=== PATIENT | female | born 1990 | race Caucasian/White ===

== ENCOUNTER → 2020-09-18 10:01 | Outpatient (CLI) | payer MEDICAID, SELFPAY ==
[2020-09-18 11:50] LABS: Hematocrit 34.2 % (37-47); Hemoglobin 11.3 g/dL (12.0-15.0); Mean Corpuscular Hgb 30.6 pg (27.0-32.0); Mean Corpuscular Volume 92.7 fL (81-99); Mean Platelet Vol. 10.5 fl (6.2-12.0); Platelet Count 229 K/mm3 (150-450); RBC Distribution Width CV 12.3 % (11.6-14.6); RBC Distribution Width SD 41.8 fl (35.1-43.9); Red Blood Count 3.69 M/mm3 (4.2-5.4); White Blood Count 7.6 K/mm3 (4.4-11.0)
[2020-09-18 11:58] LABS: Glucose Challenge Gest 1H 50g 69 mg/dL (70-140)
== END ==
PROVIDERS: Visit Provider Obstetrics & Gynecology
DX: Z34.83 Encounter for supervision of other normal pregnancy, third trimester (principal)
CPT/HCPCS: 36415; 82950; 85027

== ENCOUNTER → 2020-11-10 | Outpatient (CLI) | payer MEDICAID, SELFPAY | END | disposition home or self-care (01) | LOC: LABSPEC 11-11 09:59 | PROVIDERS: Visit Provider Obstetrics & Gynecology | DX: Z36.85 Encounter for antenatal screening for Streptococcus B (principal) | CPT/HCPCS: 87081 ==

== ENCOUNTER 2020-12-09 00:40 | Inpatient (IN) | payer MEDICAID, SELFPAY ==
[2020-12-09] VITALS (89 sets, daily range): BP systolic 99–153; BP diastolic 54–77; PULSE 64–93; RESP 16–18; TEMP 36.2–37.5; O2SAT 90–100; BMI 28.9
[2020-12-09] MEDS: Lactated Ringers 1,000 ML 50 ML IV (01:03)
[2020-12-09 01:12] LABS: Absolute Lymphocyte Count 1.09 X10^3/uL (0.83-4.51); Absolute Neutrophil Count 9.7 X10^3/uL (2.0-7.7); Basophil# 0.03 X10^3/uL; Basophil% 0.3 % (0-1); Eosinophil# 0.15 X10^3/uL; Eosinophils% 1.3 % (0-5); Hematocrit 36.1 % (37-47); Hemoglobin 11.9 g/dL (12.0-15.0); Lymphocyte # 1.09 X10^3/ul (0.83-4.51); Lymphocyte % 9.3 % (19-41); Mean Corpuscular Hgb 29.5 pg (27.0-32.0); Mean Corpuscular Volume 89.6 fL (81-99); Mean Platelet Vol. 10.6 fl (6.2-12.0); Monocyte# 0.74 X10^3/uL; Monocyte% 6.3 % (0-10); NRBC Flagged by Analyzer 0 % (0-5); Neutrophil # 9.67 X10^3/uL (2.7-7.7); Platelet Count 216 K/mm3 (150-450); RBC Distribution Width CV 12.9 % (11.6-14.6); RBC Distribution Width SD 42.3 fl (35.1-43.9); Red Blood Count 4.03 M/mm3 (4.2-5.4); White Blood Count 11.8 K/mm3 (4.4-11.0)
[2020-12-09] MEDS: Lactated Ringers 500 ML 999 ML IV ×2 (01:15→06:08)
[2020-12-09] MEDS: fentaNYL-bupivacaine (epidural) 100 ML BAG EPIDURAL ×2 (03:17→08:34)
--- NOTE | 2020-12-09 05:40 | PCM.HPOB.BLA ---
History and Physical Chief complaint: Contractions History of present illness: 30-year-old G2, P1 at 40 weeks and 2 days with ELIS: 12/07/2020 by LMP arrives with contractions. Denies headache, visual changes, nausea vomiting, chest pain, shortness of breath, right upper quadrant pain. Patient states good movement Obstetric history: G1: 34-week primary section with twins with IUGR G2: Current Past medical history: None Past surgical history primary section Medications: vitamin Allergies: No known drug allergies Social history: Denies history of smoking, alcohol use, drug use Family history: Denies history of DVT or PE Review of systems: Besides above pertinent positives a full review of systems was performed found to be negative Physical exams: Vital Signs Temp Pulse BP Pulse Ox 12/09/20 05:03 97.4 F L 74 106/71 12/09/20 04:23 76 97 12/09/20 04:18 75 98 12/09/20 04:17 66 107/68 12/09/20 04:13 65 98 12/09/20 04:08 68 97 12/09/20 04:03 73 97 12/09/20 03:58 84 97 12/09/20 03:54 78 108/68 12/09/20 03:53 97 12/09/20 03:49 66 110/60 12/09/20 03:48 98 12/09/20 03:44 69 99/56 L 12/09/20 03:43 70 97 12/09/20 03:39 68 102/56 L 12/09/20 03:38 71 99 12/09/20 03:34 69 100/57 L 12/09/20 03:33 99 12/09/20 03:29 74 102/56 L 12/09/20 03:28 99 12/09/20 03:24 67 102/55 L 12/09/20 03:23 98 12/09/20 03:21 70 109/59 L 12/09/20 03:19 77 114/61 12/09/20 03:18 80 98 12/09/20 03:13 76 98 12/09/20 03:09 80 120/62 12/09/20 03:08 99 12/09/20 03:04 88 118/61 12/09/20 03:03 84 99 12/09/20 02:59 90 120/63 12/09/20 02:58 72 99 12/09/20 02:54 82 117/60 12/09/20 02:53 84 99 12/09/20 02:51 77 123/61 H 12/09/20 02:48 85 99 12/09/20 02:44 98.3 F 85 114/56 L 12/09/20 02:43 99 12/09/20 02:41 81 121/57 H 12/09/20 02:38 83 99 12/09/20 02:35 78 106/54 L 12/09/20 02:33 93 97 12/09/20 02:31 64 119/56 L 12/09/20 02:28 69 98 12/09/20 02:26 76 116/56 L 94 12/09/20 02:23 83 98 12/09/20 02:20 76 114/77 12/09/20 02:18 72 98 12/09/20 02:17 80 90 12/09/20 02:15 73 113/57 L 12/09/20 02:12 71 97 12/09/20 02:10 84 117/65 91 12/09/20 02:06 79 96 12/09/20 02:05 71 123/58 H 12/09/20 02:04 72 94 12/09/20 02:01 71 98 12/09/20 01:59 78 121/73 H 91 12/09/20 01:56 83 97 12/09/20 01:38 74 97 12/09/20 00:56 82 97 12/09/20 00:27 73 112/75 General: Normal-appearing no acute distress HEENT: Normocephalic atraumatic no cervical lymphadenopathy Cardiac/respiratory: No use of accessory muscles, nonlabored breathing Abdomen: Soft, nontender, gravid Pelvic exam: Cervical exam 8/80/0, AROM for blood-tinged fluid Extremities: No peripheral edema normal peripheral pulses Psych: Normal affect normal demeanor nonpressured speech Mom's Microbiology 12/09/20 01:03 Mucosa - Nose SARS-CoV-2 Antigen (Rapid) - Final Mom's Labs & Results 12/09/20 12/09/20 12/09/20 01:03 01:03 04:20 WBC 11.8 H RBC 4.03 L Hgb 11.9 L Hct 36.1 L MCV 89.6 MCH 29.5 MCHC 33.0 RDW Std Deviation 42.3 RDW Coeff of Camilla 12.9 Plt Count 216 MPV 10.6 Immature Gran % (Auto) 0.800 Neut % (Auto) 82.0 H Lymph % (Auto) 9.3 L [place] % (Auto) 6.3 Eos % (Auto) 1.3 Baso % (Auto) 0.3 Absolute Neuts (auto) 9.7 H Absolute Lymphs (auto) 1.09 Nucleated RBC % 0 Chlam trachomat DNA PCR Pending N.gonorrhoeae DNA (PCR) Pending Blood Type A POSITIVE Antibody Screen NEGATIVE Labs Blood Type: A RH: POSITIVE HIV/AIDS Unknown Other Lab Procedures/Results/ Ambrosio Babb states he will get labs for RN. Comments: Assessment and plan: 30-year-old at 40 weeks and 2 days in labor. Desires TOLAC, educated on risk benefits alternatives TOLAC including but not limited to uterine rupture and . Patient states understanding wish to proceed. AROM for clear fluid. -Admit labor and delivery -CEFM -GBS negative -Routine orders -Anesthesia to see
[2020-12-09 06:24] LABS: Chlamydia Trachomatis by PCR Negative (Negative); Neisserai gonorrhoeae by PCR Negative (Negative); Probe Check PASS; Sample Adequacy Control PASS; Specimen Processing Control PASS
[2020-12-09] MEDS: Lactated Ringers 1,000 ML 200 ML IV (06:55)
[2020-12-09 09:02] LABS: Hepatitis B Surface Antigen Non-Reactive (Nonreactive)
--- NOTE | 2020-12-09 10:37 | PN.OBGYN_ITS ---
Subjective: Patient comfortable with epidural pushing - Physical Exam Vitals/I&O's: Vital Signs Temp Pulse BP Pulse Ox 99.5 F H 71 109/55 L 100 12/09/20 10:23 12/09/20 10:24 12/09/20 10:24 12/09/20 09:06 Weight: 163 lb 3.2 oz Body Mass Index (BMI) 28.9 Intake and Output for Last 24 Hours 12/07/20 12/08/20 12/09/20 23:59 23:59 23:59 Intake Total 2061.66 / 2061.66 Output Total 450 / 450 Balance 1611.66 / 1611.66 General: Alert, Oriented x3, Cooperative, No apparent distress HEENT: Atraumatic Oral: Moist Mucosa Neck: Supple Extremities: No clubbing, No cyanosis Neurological: Neuro grossly intact Psych/Mental Status: Normal Affect, Appropriate, Alert and oriented to time, place, person, mood and affect Microbiology Past 72 Hours 12/09/20 01:03 Mucosa - Nose SARS-CoV-2 Antigen (Rapid) - Final Laboratory Results 12/09/20 01:03: WBC 11.8 H, RBC 4.03 L, Hgb 11.9 L, Hct 36.1 L, MCV 89.6, MCH 29.5, MCHC 33.0, RDW Std Deviation 42.3, RDW Coeff of Camilla 12.9, Plt Count 216, MPV 10.6, Immature Gran % (Auto) 0.800, Neut % (Auto) 82.0 H, Lymph % (Auto) 9.3 L, [place] % (Auto) 6.3, Eos % (Auto) 1.3, Baso % (Auto) 0.3, Absolute Neuts (auto) 9.7 H, Absolute Lymphs (auto) 1.09, Nucleated RBC % 0 12/09/20 01:03: Blood Type A POSITIVE, Antibody Screen NEGATIVE 12/09/20 04:20: Chlam trachomat DNA PCR Negative, N.gonorrhoeae DNA (PCR) Negative 12/09/20 07:44: Hep Bs Antigen Non-Reactive Current Medications Acetaminophen (Acetaminophen 500 Mg Tablet) 500 - 1,000 mg PO Q6H PRN PRN PRN Reason: Pain Score 1-3 Al Hydroxide/Mg Hydroxide (Mag Hydrox/Al Hydrox/Simeth 30 Ml Udc) 15 - 30 ml PO Q4H PRN PRN PRN Reason: INDIGESTION Citric Acid/Sodium Citrate (Sodium Citrate/Citric Acid 30 Ml Udc) 30 ml PO X1 PRN PRN Reason: Section Ephedrine Sulfate (Ephedrine Sulfate 50 Mg/Ml Ampul) 10 mg IV Q10M PRN PRN Reason: hypotension Ephedrine Sulfate (Ephedrine Sulfate 50 Mg/Ml Ampul) 10 mg IM Q30M PRN PRN Reason: hypotension Fentanyl Citrate (Fentanyl 100 Mcg/2 Ml Ampul) 25 - 50 mcg IV Q2H PRN PRN PRN Reason: Pain Score 4-10 Fentanyl/Bupivacaine/Sodium Chlor (Fentanyl-Bupivacaine (Epidural) 100 Ml Bag) 0 ml EPIDURAL UD NIECY; Protocol Last Admin: 12/09/20 08:34 Dose: 100 ml Documented by: Lactated Ringer's () 500 mls @ 999 mls/hr IV .Q31M PRN PRN Reason: Epidural Last Infusion: 12/09/20 01:46 Dose: Infused Documented by: Lactated Ringer's () 500 mls @ 999 mls/hr IV .Q31M PRN PRN Reason: Corrective Measures Last Infusion: 12/09/20 06:39 Dose: Infused Documented by: Lactated Ringer's () 1,000 mls @ 50 mls/hr IV .Q20H NIECY Last Admin: 12/09/20 06:55 Dose: 200 mls/hr Documented by: Nalbuphine HCl (Nalbuphine 10 Mg/Ml Ampul) 5 mg IV Q3H PRN PRN PRN Reason: ITCHING Naloxone HCl (Naloxone 0.4 Mg/Ml Syringe) 0.02 mg IV Q1M PRN PRN Reason: RR <10 and pt unresponsive Ondansetron HCl (Ondansetron 4 Mg/2 Ml Vial) 4 mg IV Q4H PRN PRN PRN Reason: NAUSEA Prochlorperazine Edisylate (Prochlorperazine 10 Mg/2 Ml Vial) 10 mg IV Q6H PRN PRN PRN Reason: NAUSEA Sodium Chloride (0.9% Saline Lock 10 Ml Syringe) 10 - 40 ml IV X1 PRN PRN Reason: SALINE FLUSH Medical Necessity - Tobacco Use Smoking Status: Never smoker Assessment/Plan Patient seen and examined. Cervical exam 10/100/+1 to +2. We will continue pushing for 30 to 45 minutes and reevaluate. Had early discussions about forceps assisted vaginal delivery or vacuum-assisted delivery if needed. Patient state understanding
[2020-12-09] MEDS: Oxytocin 30 units/NS 500 ml 30 UNITS/500 ML IV.SOLN 334 UNITS IV (11:38)
--- NOTE | 2020-12-09 12:17 | PCM.OPRPT ---
Vaginal Delivery Date of Procedure: 12/09/20 Pre-Operative Diagnosis: Term, maternal exhaustion Post-Operative Diagnosis: Term, maternal exhaustion Surgery/ Procedure Performed: Vacuum Assisted Vaginal Delivery Type of Anesthesia: Epidural Description of Procedure: Procedure: Vacuum-assisted vaginal delivery Surgeon: Zana Babb MD Anesthesia: Epidural EBL 800 cc Complications: None Findings: Male in vertex position +2-3 station HENRY Apgars 8/9. Right sulcus tear, second-degree midline perineal laceration noted. Consent: Patient arrived with contractions for TOLAC found to be 10 cm dilated. Pushed for greater than 4 hours, maternal exhaustion. Found to be +2-3 station HENRY. Pelvis felt to be appropriate for vaginal delivery. Epidural anesthesia was adequate for pain relief. Discussed patient's options including vacuum-assisted vaginal delivery including the risk associated with each procedure. The patient desired to proceed with vacuum-assisted vaginal delivery, and understood there was a small risk of cephalhematoma and shoulder dystocia. Process of the vacuum was explained and the vacuum was shown to the patient. Procedure: Pelaez catheter present during delivery. Vaginal examination reconfirmed HENRY position +2-3 station. Kiwi vacuum was applied over the sagittal suture about 3 cm in front of the posterior fontanelle. Vacuum pressure was applied. The edge of the cup was carefully examined and no maternal tissue was entrapped under the cup. Gentle horizontal traction along the pelvic access in coordination with uterine contractions maternal pushing was performed. Progressive distention was noted with 1 pull. The handle of vacuum was gradually elevated and the perineum began to bulge. The cup did not pop off. The cup was removed after the head was delivered. Head and shoulders were delivered with ease. Cord was cut and clamped. Baby handed off to nursing. Placenta was delivered via cord traction and fundal massage. IV Pitocin was initiated in order to facilitate uterine contractions. The cervix and vaginal wall were thoroughly examined. Right sulcus tear second-degree midline perineal laceration was noted and repaired in typical fashion. Good hemostasis was noted. All counts correct x2.
--- NOTE | 2020-12-09 12:22 | DCINST_ITS ---
Discharge Diet: No Restrictions Discharge Activity: Return to Normal Activity, May Drive, May Shower May resume sexual activity in: 6-8 weeks Weight Bearing Status: Weight bearing as tolerated Call your doctor if your incision/area has: Continuous Slow Oozing, Foul Smelling Discharge Call your doctor if you observe: Fever of 101 or Higher, Shortness of breath, Chest pain Additional Instructions: If you experience any of the following, contact your healthcare provider. * Bleeding that soaks a pad every hour for 2 hours * Fever 100.4 or higher * Unrelieved incision or abdominal pain * Swelling, redness, discharge or bleeding from your incision or episiotomy site * Your incision begins to separate * Problems urinating (including inability to urinate or burning while urinating). * Visual changes * Severe headache * Flu-like symptoms * Pain or redness in one of both of your breasts * Pain, warmth, tenderness or swelling in your legs, especially the calf area * Frequent nausea and vomiting * Symptoms of depression or anxiety If you experience any of the following, call 911 or go to the nearest Emergency Room. * Chest pain * Problems breathing * Seizure activity * Partial or complete paralysis of a body part, slurred speech, weakness or drooping of the face, or a sudden inability to walk or hold your balance Allergies/Adverse Reactions: Allergies No Known Allergies Allergy (Verified 12/09/20 00:49) Please Follow Up With: Zana Babb MD When: 3 week telehealth, 6 week visit Test Results: Test results from this visit will be discussed in further detail at your follow- up appointment, if applicable.
--- NOTE | 2020-12-09 12:22 | PCM.DCVAG ---
Discharge Diet: No Restrictions Discharge Activity: Return to Normal Activity, May Drive, May Shower May resume sexual activity in: 6-8 weeks Weight Bearing Status: Weight bearing as tolerated Call your doctor if your incision/area has: Continuous Slow Oozing, Foul Smelling Discharge Call your doctor if you observe: Fever of 101 or Higher, Shortness of breath, Chest pain Additional Instructions: If you experience any of the following, contact your healthcare provider. Bleeding that soaks a pad every hour for 2 hours Fever 100.4 or higher Unrelieved incision or abdominal pain Swelling, redness, discharge or bleeding from your incision or episiotomy site Your incision begins to separate Problems urinating (including inability to urinate or burning while urinating). Visual changes Severe headache Flu-like symptoms Pain or redness in one of both of your breasts Pain, warmth, tenderness or swelling in your legs, especially the calf area Frequent nausea and vomiting Symptoms of depression or anxiety If you experience any of the following, call 911 or go to the nearest Emergency Room. Chest pain Problems breathing Seizure activity Partial or complete paralysis of a body part, slurred speech, weakness or drooping of the face, or a sudden inability to walk or hold your balance Allergies/Adverse Reactions: Allergies No Known Allergies Allergy (Verified 12/09/20 00:49) Please Follow Up With: Zana Babb MD When: 3 week telehealth, 6 week visit Test Results: Test results from this visit will be discussed in further detail at your follow-up appointment, if applicable.
[2020-12-09] MEDS: Carboprost Tromethamine 250 MCG/ML Ampul IM (14:21)
[2020-12-09] MEDS: Ibuprofen 600 MG Tablet PO (15:02)
[2020-12-09 18:20] LABS: Absolute Lymphocyte Count 0.79 X10^3/uL (0.83-4.51); Absolute Neutrophil Count 18.3 X10^3/uL (2.0-7.7); Basophil# 0.04 X10^3/uL; Basophil% 0.2 % (0-1); Eosinophil# 0.01 X10^3/uL; Hematocrit 35.1 % (37-47); Hemoglobin 11.4 g/dL (12.0-15.0); Lymphocyte # 0.79 X10^3/ul (0.83-4.51); Lymphocyte % 3.9 % (19-41); Mean Corp Hgb Conc 32.5 g/dL (32-36); Mean Corpuscular Hgb 29.5 pg (27.0-32.0); Mean Corpuscular Volume 90.7 fL (81-99); Mean Platelet Vol. 10.6 fl (6.2-12.0); Monocyte# 0.99 X10^3/uL; Monocyte% 4.9 % (0-10); NRBC Flagged by Analyzer 0 % (0-5); Neutrophil # 18.33 X10^3/uL (2.7-7.7); Neutrophil % 90.5 % (47-70); Platelet Count 197 K/mm3 (150-450); RBC Distribution Width CV 13.2 % (11.6-14.6); RBC Distribution Width SD 43.8 fl (35.1-43.9); Red Blood Count 3.87 M/mm3 (4.2-5.4); White Blood Count 20.3 K/mm3 (4.4-11.0)
[2020-12-10] VITALS (12 sets, daily range): BP systolic 99–109; BP diastolic 55–59; PULSE 66–81; RESP 16–18; TEMP 36.5–37; O2SAT 87–98
[2020-12-10] MEDS: Ibuprofen 600 MG Tablet PO ×3 (00:12→20:19)
--- NOTE | 2020-12-10 07:15 | PN.OBGYN_ITS ---
Subjective: No overnight complaints. Pain well controlled. - Physical Exam Vitals/I&O's: Vital Signs Temp Pulse Resp BP Pulse Ox 97.8 F 68 16 109/55 L 100 12/10/20 03:09 12/10/20 03:09 12/10/20 03:09 12/10/20 03:09 12/09/20 09:06 Oxygen Delivery Method Room Air Weight: 163 lb 3.2 oz Body Mass Index (BMI) 28.9 Intake and Output for Last 24 Hours 12/08/20 12/09/20 12/10/20 23:59 23:59 23:59 Intake Total 3504.99 / 3504.99 Output Total 2049 / 2049 Balance 1454.99 / 1454.99 General: Alert, Oriented x3, Cooperative, No apparent distress HEENT: Atraumatic Oral: Moist Mucosa Neck: Supple Extremities: No clubbing, No cyanosis Neurological: Neuro grossly intact Psych/Mental Status: Normal Affect, Appropriate, Alert and oriented to time, place, person, mood and affect Microbiology Past 72 Hours 12/09/20 01:03 Mucosa - Nose SARS-CoV-2 Antigen (Rapid) - Final Laboratory Results 12/09/20 07:44: Hep Bs Antigen Non-Reactive 12/09/20 18:15: WBC 20.3 H, RBC 3.87 L, Hgb 11.4 L, Hct 35.1 L, MCV 90.7, MCH 29.5, MCHC 32.5, RDW Std Deviation 43.8, RDW Coeff of Camilla 13.2, Plt Count 197, MPV 10.6, Immature Gran % (Auto) 0.500, Neut % (Auto) 90.5 H, Lymph % (Auto) 3.9 L, [place] % (Auto) 4.9, Eos % (Auto) 0.0, Baso % (Auto) 0.2, Absolute Neuts (auto) 18.3 H, Absolute Lymphs (auto) 0.79 L, Nucleated RBC % 0 Current Medications Acetaminophen (Acetaminophen 500 Mg Tablet) 1,000 mg PO Q8H PRN PRN PRN Reason: Pain Score 1-3 Bisacodyl (Bisacodyl 10 Mg Suppository) 10 mg RC UD PRN PRN Reason: If no BM Dibucaine (Dibucaine 30 Gm Tube) 1 applic TOPICAL TID PRN PRN; Protocol PRN Reason: Discomfort Hydrocortisone (Hydrocortisone 2.5% Crm) 1 applic TOPICAL TID PRN PRN; Protocol PRN Reason: Discomfort Ibuprofen (Ibuprofen 600 Mg Tablet) 600 mg PO Q6H PRN PRN PRN Reason: Pain Score 1-3 Last Admin: 12/10/20 00:12 Dose: 600 mg Documented by: Ondansetron HCl (Ondansetron 4 Mg/2 Ml Vial) 4 mg IV Q4H PRN PRN PRN Reason: Nausea Oxycodone HCl (Oxycodone 5 Mg Tablet) 5 - 10 mg PO Q4H PRN PRN PRN Reason: Pain Score 4-10 Senna/Docusate Sodium (Senna/Docusate Sodium 1 Tablet) 1 - 2 tablet PO DAILY PRN PRN PRN Reason: Constipation Simethicone (Simethicone 80 Mg Tablet) 80 mg PO PCHS PRN PRN Reason: Indigestion/Stomach pain Sodium Chloride (0.9% Saline Lock 10 Ml Syringe) 5 - 15 ml IV UD PRN PRN Reason: SALINE FLUSH Medical Necessity - Tobacco Use Smoking Status: Never smoker Assessment/Plan day 1. Breast-feeding. hemorrhage secondary to right sulcus tear, vital signs stable hemoglobin was performed sooner than expected but overall stable. No concerns based on stable vital signs and stable bleeding. Patient asymptomatic, no need for repeat CBC
[2020-12-11 02:11] VITALS: BP 98/52; PULSE 65
[2020-12-11 02:14] VITALS: BP 98/52; PULSE 65; RESP 18; TEMP 36.8; O2SAT 98
--- NOTE | 2020-12-11 08:22 | PCM.PN.OB ---
Subjective: day 2. Feeling well having some perineal soreness. Lochia minimal. Breast-feeding. - Physical Exam Vitals/I&O's: Vital Signs Temp Pulse Resp BP Pulse Ox 98.2 F 65 18 98/52 L 98 12/11/20 02:14 12/11/20 02:14 12/11/20 02:14 12/11/20 02:14 12/11/20 02:14 Oxygen Delivery Method Room Air Weight: 74.026 kg Body Mass Index (BMI) 28.9 Intake and Output for Last 24 Hours 12/09/20 12/10/20 12/11/20 23:59 23:59 23:59 Intake Total 3504.99 / 3504.99 Output Total 2049 / 2049 Balance 1454.99 / 1454.99 General: Alert, Oriented x3, No apparent distress HEENT: Atraumatic, Normocephalic Neck: Supple Lungs: Normal air movement Cardiovascular: Regular rate Abdomen: Soft - Uterus 2 cm below umbilicus Extremities: No edema Neurological: Cranial nerves II-XII grossly intact Psych/Mental Status: Normal Affect, Appropriate Microbiology Past 72 Hours 12/09/20 01:03 Mucosa - Nose SARS-CoV-2 Antigen (Rapid) - Final Current Medications Acetaminophen (Acetaminophen 500 Mg Tablet) 1,000 mg PO Q8H PRN PRN PRN Reason: Pain Score 1-3 Bisacodyl (Bisacodyl 10 Mg Suppository) 10 mg RC UD PRN PRN Reason: If no BM Dibucaine (Dibucaine 30 Gm Tube) 1 applic TOPICAL TID PRN PRN; Protocol PRN Reason: Discomfort Hydrocortisone (Hydrocortisone 2.5% Crm) 1 applic TOPICAL TID PRN PRN; Protocol PRN Reason: Discomfort Ibuprofen (Ibuprofen 600 Mg Tablet) 600 mg PO Q6H PRN PRN PRN Reason: Pain Score 1-3 Last Admin: 12/10/20 20:19 Dose: 600 mg Documented by: Ondansetron HCl (Ondansetron 4 Mg/2 Ml Vial) 4 mg IV Q4H PRN PRN PRN Reason: Nausea Oxycodone HCl (Oxycodone 5 Mg Tablet) 5 - 10 mg PO Q4H PRN PRN PRN Reason: Pain Score 4-10 Senna/Docusate Sodium (Senna/Docusate Sodium 1 Tablet) 1 - 2 tablet PO DAILY PRN PRN PRN Reason: Constipation Simethicone (Simethicone 80 Mg Tablet) 80 mg PO PCHS PRN PRN Reason: Indigestion/Stomach pain Sodium Chloride (0.9% Saline Lock 10 Ml Syringe) 5 - 15 ml IV UD PRN PRN Reason: SALINE FLUSH Medical Necessity - Tobacco Use Smoking Status: Never smoker Assessment/Plan 30-year-old day 2 status post vacuum-assisted vaginal delivery. Breast-feeding. Home today. Baby needs bilirubin follow-up, labs on baby and mom provided for primary care physician follow-up for baby closer to home.
[2020-12-11 08:50] VITALS: BP 112/63; PULSE 90
[2020-12-11 09:00] VITALS: BP 112/63; PULSE 90; RESP 16; TEMP 36.6; O2SAT 98
[2020-12-11] MEDS: Ibuprofen 600 MG Tablet PO (09:01)
== END 2020-12-11 10:10 | disposition home or self-care (01) | DRG 560 ==
LOC: WPOUT 00:43 → WP 00:43
PROVIDERS: Admitting Provider Obstetrics & Gynecology; Visit Provider Obstetrics & Gynecology
DX: O75.81 Maternal exhaustion complicating labor and delivery (principal); Z37.0 Single live birth; Z3A.40 40 weeks gestation of pregnancy; O70.1 Second degree perineal laceration during delivery; O72.2 Delayed and secondary postpartum hemorrhage
CPT/HCPCS: 59025; 59050; 85025; 86850; 86900; 86901; 87340; 87426; 87491; 87591; 99218; J7120; G0378

== ENCOUNTER → 2021-01-26 | Outpatient (CLI) | payer MEDICAID, SELFPAY ==
[2020-12-09 00:26] VITALS: BMI 28.9
[2021-01-29 16:43] LABS: HPV Reflexed? NOT INDICATED
== END | disposition home or self-care (01) ==
LOC: LABSPEC 01-27 09:17
PROVIDERS: Visit Provider Obstetrics & Gynecology
DX: Z12.4 Encounter for screening for malignant neoplasm of cervix (principal)
CPT/HCPCS: 88175; G0145

== ENCOUNTER → 2021-03-25 | Outpatient (CLI) | payer MEDICAID, SELFPAY ==
[2020-12-09 00:26] VITALS: BMI 28.9
--- NOTE | 2021-03-25 | LES_PTH ---
PATIENT: CORNELIUS ABRAHAM I LOC: [facility] #:[id number] AGE/SX: 30/F ROOM: RE03/25/[address]: Dr. Juan Rodrigez MD : 1990 BED: DIS: 03/25/2021 SPEC #: [id number] RECD: 03/25/21 14:30 STATUS: ROBIN NIRAV #: [id number] YANNI: 03/25/21 00:[address]: Juan Rodrigez DEPT: SURGICAL PATHOLOGY RECD BY: Raisa Shaffer Tissues: Vagina, NOS Procedures: Surgery Specimen Level IV HEADER OPERATION: Removal vaginal granulation tissue PRE-OP DIAGNOSIS: Vaginal granulation tissue TISSUE SUBMITTED: Vaginal lesion, questionable granulation tissue MICROSCOPIC DIAGNOSIS Vaginal lesion: Granulation with associated acute and chronic inflammation. AM:olga lidia 03/29/2021 MICROSCOPIC DESCRIPTION Slides are reviewed. GROSS DESCRIPTION Received in fixative is one container labeled with the patient's name and designated vaginal lesion, questionable granulation tissue. The specimen consists of multiple irregular fragments of pink soft tissue that in aggregate measure 3 x 2.5 x 0.3 cm. The specimen is totally submitted in one cassette. / SJ:olga lidia 03/26/21 TC:2 CPT: 92773
== END | disposition home or self-care (01) ==
LOC: LABSPEC 13:32
PROVIDERS: Visit Provider Obstetrics & Gynecology
DX: A58 Granuloma inguinale (principal)
CPT/HCPCS: 88305

== ENCOUNTER 2023-12-12 19:37 | Inpatient (IN) | payer MEDICAID, SELFPAY ==
[2023-12-12] VITALS (43 sets, daily range): BP systolic 47–127; BP diastolic 22–70; PULSE 57–132; RESP 14–16; TEMP 36.7–37.2; O2SAT 83–100
[2023-12-12] MEDS: Oxytocin 10 UNITS/ML Vial IM (19:30)
[2023-12-12] MEDS: Ketorolac 30 MG/ML Syringe IV (19:48)
[2023-12-12] MEDS: 0.9% Saline Lock 10 ML Syringe IV (19:49)
[2023-12-12] MEDS: Lidocaine 1% (20 ml mdv) 20 ML Vial INFILT (19:49)
[2023-12-12 19:58] LABS: Absolute Lymphocyte Count 2.08 X10^3/uL (0.83-4.51); Absolute Neutrophil Count 16.1 X10^3/uL (2.0-7.7); Basophil# 0.08 X10^3/uL; Basophil% 0.4 % (0-1); Eosinophil# 0.05 X10^3/uL; Eosinophils% 0.3 % (0-5); Hematocrit 36.9 % (37-47); Hemoglobin 11.8 g/dL (12.0-15.0); Lymphocyte # 2.08 X10^3/ul (0.83-4.51); Lymphocyte % 10.7 % (19-41); Mean Corpuscular Hgb 27.9 pg (27.0-32.0); Mean Corpuscular Volume 87.2 fL (81-99); Mean Platelet Vol. 10.7 fl (6.2-12.0); Monocyte# 1.04 X10^3/uL; Monocyte% 5.3 % (0-10); NRBC Flagged by Analyzer 0 % (0-5); Neutrophil # 16.13 X10^3/uL (2.7-7.7); Neutrophil % 82.6 % (47-70); Platelet Count 300 K/mm3 (150-450); RBC Distribution Width CV 13.7 % (11.6-14.6); RBC Distribution Width SD 43.1 fl (35.1-43.9); Red Blood Count 4.23 M/mm3 (4.2-5.4); White Blood Count 19.5 K/mm3 (4.4-11.0)
[2023-12-12] MEDS: Oxytocin 15 Units/NS 250ml 15 UNITS/250 ML IV.SOLN 83 UNITS IV (20:05)
--- NOTE | 2023-12-12 20:10 | OP.PCM_ITS ---
Assessment & Plan (1) History of section: (2) (vaginal after ): (3) Second degree perineal laceration: (4) Lactating mother: (5) Precipitous delivery: Maternal Data Information ELIS Calculator Estimated Delivery Date Method Current WG Current Estimate 12/10/23 Manual 40w 2d Vaginal Delivery Maternal Presentation Maternal Presentation: Active Labor and Spontaneous Rupture of Membranes Operative Information Date of Procedure: 12/12/23 Pre-Operative Diagnosis: Active labor at term, TOLAC Post-Operative Diagnosis: , precipitous , 2nd degree perineal laceration Surgery / Procedure Performed: Type of Anesthesia: Local with 1% Lidocaine Estimated Blood Loss: 500 ml Time of Delivery: 19:11 Findings Description of Procedure: Patient had urge to push while in route to hospital. Upon arrival delivered in car by . Were brought to hospital by grain combine driver and he assisted vaginal delivery in car. of viable male over 2nd degree perineal lacerations. APGARS 9 upon arrival as delivery was likely 10 minutes prior. Placenta delivered apparently intact prior to arrival. Pitocin started for active 3rd stage. Perineum inspected and revealed 2nd degree perineal laceration. Repaired with 3.0 vicryl rapide and lidocaine. Fundus firm and hemostasis achieved. EBL 500ml. Mom and baby stable, planning to breastfeed. Family bonding well. notified of delivery. Presentation: Vertex Amniotic Membrane Rupture Type: Spontaneous Amniotic Fluid Description: Clear Placental Delivery Description: Spontaneous Placenta Disposition: [facility] Cord Vessel Description: 3 Vessels Cord Entanglement: None Infant A Gender: Male (5 minute): 9 Delayed Cord Clamping: Yes Post Vaginal Delivery Medications Given After Delivery: IV Pitocin and IM Pitocin Episiotomy Description: None Laceration: Perineal Extension/lac and 2nd degree Complication Complications: None
--- NOTE | 2023-12-12 20:14 | PCM.HP.OB ---
HPI - General General Date of Admission: 12/12/23 HPI Narrative CORNELIUS ABRAHAM, is a 33 F who presents at 40w2d. Upon arrival delivered in care by . Were brought to hospital by funeral car driver and he assisted vaginal delivery in car. Maternal Data Information ELIS Calculator Estimated Delivery Date Method Current WG Current Estimate 12/10/23 Manual 40w 2d PFSH PFSH Allergy/AdvReac Type Severity Reaction Status Date / Time No Known Allergies Allergy Verified 12/09/20 00:49 Social History Smoking Status: Never smoker History Elective abortions Hx Para 2 Spontaneous abortions Hx # Term Pregnancies Ectopic pregnancies Hx # Pregnancies Multiple births # of living children Vital Signs Vital Signs Vital Signs: 12/12/23 19:36 12/12/23 19:36 12/12/23 19:41 Pulse Rate 108 H 97 Blood Pressure BP Systolic BP Diastolic Pulse Ox 100 12/12/23 19:41 12/12/23 19:46 12/12/23 19:46 Pulse Rate 112 H Blood Pressure 103/68 BP Systolic 103 BP Diastolic 68 Pulse Ox 98 12/12/23 19:47 12/12/23 19:47 12/12/23 19:48 Pulse Rate 132 H 105 H Blood Pressure BP Systolic BP Diastolic Pulse Ox 94 12/12/23 19:48 12/12/23 19:52 12/12/23 19:52 Pulse Rate 89 Blood Pressure BP Systolic BP Diastolic Pulse Ox 94 99 12/12/23 19:57 12/12/23 19:57 12/12/23 20:01 Pulse Rate 92 Blood Pressure 104/60 BP Systolic 104 BP Diastolic 60 Pulse Ox 98 12/12/23 20:01 12/12/23 20:01 Pulse Rate 120 H Blood Pressure BP Systolic BP Diastolic Pulse Ox 88 Labs Labs Labs: Blood Type A POSITIVE Antibody Screen NEGATIVE Hct 36.9 % (37-47) L Hgb 11.8 g/dL (12.0-15.0) L Syphilis Total Ab Pending Hep Bs Antigen Non-Reactive (Nonreactive) Glucose 1 Hr 50 gm 69 mg/dL (70-140) L Rhogam given: No GBS negative GC/CT negative HIV negative Assessment & Plan (1) History of delivery: (2) Encounter for trial of labor: (3) Active labor at term: (4) History of vacuum extraction assisted delivery: (5) 40 weeks gestation of : (6) History of section: PLAN: Plan 1) Admit to labor and delivery 2) Routine labs 3) Principal Security Architect present for evaluation 4) notified of delivery. Collaborative physician and updated on patient assessment and plan.
[2023-12-12] MEDS: Acetaminophen 500 MG Tablet PO (20:21)
[2023-12-12 20:37] LABS: Syphilis Antibodies Non-reactive
--- NOTE | 2023-12-12 22:28 | NURSING ---
at 185 Rhonda Carrizales CNM called unit with update-pt heading to unit for rule out labor 1914 ER triage nurse called unit with update pts driver/refuse collector called ER stating delivery was imminent and they were approx 5 mins from ER entrance. WP audit clerks supervisor, labor RN, [place] RN and manager pharmaceutical went to ER with code pink box. Rhonda Carrizales CNM notified of imminent delivery. 1919 Pt and infant arrived to ER. mother alert and oriented in back seat of truck. placenta noted to be delivered upon pts arrival. infant was crying, acrocyanosis, good tone noted. infant dried and wrapped with warm blankets, cord clamped x2 then cut by Diandra. infant then handed off to James RN to be assessed by her and . Fundus noted to be firm at U. moderate amts of lochia noted. mother transferred to a wheelchair. ID bands placed on mother and . 1924 IM pitocin was given to mother by Mónica DEE to left deltoid. pt and infant transferred to for recovery-arrived to room 15 at 192
--- NOTE | 2023-12-12 23:15 | NURSING ---
2315- Patient assisted up to bathroom for first time after delivery. Bleeding during recovery was appropriate. Patient ate a meal and drank a sprite during recovery. Able to ambulated independently. Once in bathroom, the patient stopped walking, stated she felt a little light headed, then lost consciousness and RN slowly lowered patient to floor. Patient did not hit head. RN called for help. Juice given to patient. RN assist x2 stood patient up and sat her on the toilet, unable to void at this time. New pad, underwear, and gown applied. Patient transferred from toilet to wheelchair with RN assist x2. Once in wheel chair, patient proceeded to lose consciousness two more times. Patient difficult to arouse, BP cuff and pulse ox cords being placed on patient, ASSISTANT PUBLIC DEFENDER called, Sis and Dr. Klein notified. Refer to ASSISTANT PUBLIC DEFENDER event documentation for vital signs and interventions.
[2023-12-12] MEDS: Lactated Ringers 1,000 ML 999 ML IV (23:23)
[2023-12-12] MEDS: 0.9% Normal Saline (1000mL) 1,000 ML 999 ML IV (23:33)
[2023-12-12 23:39] LABS: Absolute Lymphocyte Count 1.18 X10^3/uL (0.83-4.51); Absolute Neutrophil Count 15.7 X10^3/uL (2.0-7.7); Basophil# 0.03 X10^3/uL; Basophil% 0.2 % (0-1); Eosinophil# 1.58 X10^3/uL; Hematocrit 29.5 % (37-47); Hemoglobin 9.3 g/dL (12.0-15.0); Lymphocyte # 1.18 X10^3/ul (0.83-4.51); Lymphocyte % 5.9 % (19-41); Mean Corp Hgb Conc 31.5 g/dL (32-36); Mean Corpuscular Hgb 27.7 pg (27.0-32.0); Mean Corpuscular Volume 87.8 fL (81-99); Mean Platelet Vol. 10.4 fl (6.2-12.0); Monocyte# 1.25 X10^3/uL; Monocyte% 6.3 % (0-10); NRBC Flagged by Analyzer 0 % (0-5); Neutrophil # 15.66 X10^3/uL (2.7-7.7); Neutrophil % 78.9 % (47-70); POSITIVE MORPHOLOGY YES; Platelet Count 222 K/mm3 (150-450); RBC Distribution Width CV 13.5 % (11.6-14.6); RBC Distribution Width SD 42.5 fl (35.1-43.9); Red Blood Count 3.36 M/mm3 (4.2-5.4); White Blood Count 19.8 K/mm3 (4.4-11.0)
[2023-12-12 23:40] LABS: Differential Indicated SCAN CRITERIA MET
[2023-12-12 23:56] LABS: ALB/GLOB Ratio 0.7 RATIO (0.9-2.4); AST(SGOT) 25 U/L (15-37); Alanine Aminotransfer ALT/SGPT 19 U/L (13-56); Albumin, Serum 2.1 g/dL (3.2-5.0); Alkaline Phosphatase 100 U/L (45-117); Anion Gap 9 (5-15); BUN 11 mg/dL (7-18); BUN/Creat Ratio 11.8 RATIO (10-20); Calcium,Total 8.1 mg/dL (8.5-10.1); Chloride 105 mmol/L (98-107); Creatinine, Serum 0.93 mg/dL (0.55-1.02); EST Glomerular Filtration Rate 73 mL/min (>60); Est Glom Filt Rate - Afr Amer 89 mL/min (>60); Globulin 3.2 g/dL (2.2-4.2); Glucose 200 mg/dL (74-106); Potassium 3.5 mmol/L (3.5-5.1); Protein, Total 5.3 g/dL (6.4-8.2); Sodium Level 138 mmol/L (136-145)
[2023-12-13] VITALS (18 sets, daily range): BP systolic 100–115; BP diastolic 55–71; PULSE 65–92; RESP 15–17; TEMP 36.6–37.1; O2SAT 98–100
[2023-12-13 00:05] LABS: Differential Comment SCANNED
[2023-12-13 00:14] LABS: Bedside Glucose 160 mg/dL (74-106)
[2023-12-13] MEDS: 0.9% Saline Lock 10 ML Syringe IV ×2 (00:15→10:08)
[2023-12-13 00:35] LABS: Fibrinogen < 60 mg/dl (203-444)
[2023-12-13 00:36] LABS: International Normalized Ratio 1.1
[2023-12-13 06:36] LABS: Absolute Lymphocyte Count 1.38 X10^3/uL (0.83-4.51); Absolute Neutrophil Count 11.7 X10^3/uL (2.0-7.7); Basophil# 0.03 X10^3/uL; Basophil% 0.2 % (0-1); Hematocrit 24.5 % (37-47); Hemoglobin 7.8 g/dL (12.0-15.0); Lymphocyte # 1.38 X10^3/ul (0.83-4.51); Lymphocyte % 9.6 % (19-41); Mean Corp Hgb Conc 31.8 g/dL (32-36); Mean Corpuscular Hgb 27.8 pg (27.0-32.0); Mean Corpuscular Volume 87.2 fL (81-99); Mean Platelet Vol. 10.8 fl (6.2-12.0); Monocyte# 1.08 X10^3/uL; Monocyte% 7.5 % (0-10); NRBC Flagged by Analyzer 0 % (0-5); Neutrophil # 11.74 X10^3/uL (2.7-7.7); Platelet Count 179 K/mm3 (150-450); RBC Distribution Width CV 13.7 % (11.6-14.6); RBC Distribution Width SD 43.2 fl (35.1-43.9); Red Blood Count 2.81 M/mm3 (4.2-5.4); White Blood Count 14.3 K/mm3 (4.4-11.0)
[2023-12-13 07:00] LABS: Fibrinogen 350 mg/dl (203-444); International Normalized Ratio 1.1; Partial Thromboplast Time 24.7 Seconds (24.1-36.2); Prothrombin Time (Protime)PT. 13.9 SECONDS (11.7-14.9)
[2023-12-13 07:01] LABS: Absolute Lymphocyte Count 0.83 X10^3/uL (0.83-4.51); Absolute Neutrophil Count 14.6 X10^3/uL (2.0-7.7); Basophil# 0.02 X10^3/uL; Basophil% 0.1 % (0-1); Hematocrit 25.3 % (37-47); Hemoglobin 8.1 g/dL (12.0-15.0); Lymphocyte # 0.83 X10^3/ul (0.83-4.51); Lymphocyte % 5.1 % (19-41); Mean Corpuscular Hgb 27.8 pg (27.0-32.0); Mean Corpuscular Volume 86.9 fL (81-99); Mean Platelet Vol. 10.8 fl (6.2-12.0); Monocyte# 0.86 X10^3/uL; Monocyte% 5.2 % (0-10); NRBC Flagged by Analyzer 0 % (0-5); Neutrophil # 14.58 X10^3/uL (2.7-7.7); Neutrophil % 88.7 % (47-70); Platelet Count 180 K/mm3 (150-450); RBC Distribution Width CV 13.7 % (11.6-14.6); RBC Distribution Width SD 42.8 fl (35.1-43.9); Red Blood Count 2.91 M/mm3 (4.2-5.4); White Blood Count 16.4 K/mm3 (4.4-11.0)
--- NOTE | 2023-12-13 08:47 | NURSING ---
0815 pt oob up to chair- pt gait steady denies feeling dizzy
--- NOTE | 2023-12-13 09:06 | PN.OBGYN_ITS ---
Subjective Subjective Patient seen at bedside. Sitting in chair eating breakfast. Feeling tired. Ambulating and voiding without difficulty. Lochia is minimal. without difficulty. Objective Data Objective Data Vital Signs: Vital Signs Temp Pulse Resp BP Pulse Ox O2 Del Method 98.8 F 73 16 112/67 98 Room Air 12/13/23 08:15 12/13/23 08:15 12/13/23 08:15 12/13/23 08:15 12/13/23 08:15 12/13/23 08:15 Oxygen Delivery Method Room Air Intake & Output: Intake and Output for Last 24 Hours 12/11/23 12/12/23 12/13/23 23:59 23:59 23:59 Intake Total 250 / 250 2000 / 2000 Output Total 500 / 500 600 / 600 Balance -250 / -250 1400 / 1400 Lab / Micro Data 12/13/23 06:15 12/12/23 23:30 Labs: Laboratory Results - last 24 hr 12/12/23 19:35: WBC 19.5 H, RBC 4.23, Hgb 11.8 L, Hct 36.9 L, MCV 87.2, MCH 27.9, MCHC 32.0, RDW Std Deviation 43.1, RDW Coeff of Camilla 13.7, Plt Count 300, MPV 10.7, Immature Gran % (Auto) 0.700, Neut % (Auto) 82.6 H, Lymph % (Auto) 10.7 L, [facility] % (Auto) 5.3, Eos % (Auto) 0.3, Baso % (Auto) 0.4, Absolute Neuts (auto) 16.1 H, Absolute Lymphs (auto) 2.08, Nucleated RBC % 0, Syphilis Total Ab Non-reactive, Blood Type A POSITIVE, Antibody Screen NEGATIVE 12/12/23 23:22: POC Glucose 160 H 12/12/23 23:30: WBC 19.8 H, RBC 3.36 L, Hgb 9.3 L, Hct 29.5 L, MCV 87.8, MCH 27.7, MCHC 31.5 L, RDW Std Deviation 42.5, RDW Coeff of Camilla 13.5, Plt Count 222, MPV 10.4, Immature Gran % (Auto) 0.700, Neut % (Auto) 78.9 H, Lymph % (Auto) 5.9 L, [facility] % (Auto) 6.3, Eos % (Auto) 8.0 H, Baso % (Auto) 0.2, Absolute Neuts (auto) 15.7 H, Absolute Lymphs (auto) 1.18, Nucleated RBC % 0, Differential Comment SCANNED, PT 14.0, INR 1.1, Fibrinogen < 60 L*, Sodium 138, Potassium 3.5, Chloride 105, Carbon Dioxide 24.0, Anion Gap 9, BUN 11, Creatinine 0.93, Est GFR (MDRD) Af Amer 89, Est GFR (MDRD) Non-Af 73, BUN/Creatinine Ratio 11.8, Glucose 200 H, Calcium 8.1 L, Total Bilirubin 0.10 L, AST 25, ALT 19, Alkaline Phosphatase 100, Total Protein 5.3 L, Albumin 2.1 L, Globulin 3.2, Albumin/Globulin Ratio 0.7 L 12/13/23 01:28: WBC 16.4 H, RBC 2.91 L, Hgb 8.1 L, Hct 25.3 L, MCV 86.9, MCH 27.8, MCHC 32.0, RDW Std Deviation 42.8, RDW Coeff of Camilla 13.7, Plt Count 180, MPV 10.8, Immature Gran % (Auto) 0.900, Neut % (Auto) 88.7 H, Lymph % (Auto) 5.1 L, [facility] % (Auto) 5.2, Eos % (Auto) 0.0, Baso % (Auto) 0.1, Absolute Neuts (auto) 14.6 H, Absolute Lymphs (auto) 0.83, Nucleated RBC % 0, PT 13.9, INR 1.1, APTT 24.7, Fibrinogen 350 12/13/23 06:15: WBC 14.3 H, RBC 2.81 L, Hgb 7.8 L, Hct 24.5 L, MCV 87.2, MCH 27.8, MCHC 31.8 L, RDW Std Deviation 43.2, RDW Coeff of Camilla 13.7, Plt Count 179, MPV 10.8, Immature Gran % (Auto) 0.700, Neut % (Auto) 82.0 H, Lymph % (Auto) 9.6 L, [facility] % (Auto) 7.5, Eos % (Auto) 0.0, Baso % (Auto) 0.2, Absolute Neuts (auto) 11.7 H, Absolute Lymphs (auto) 1.38, Nucleated RBC % 0 ROS Eyes Eyes: Denies blurry vision, change in vision or spots in vision ENT HEENT: Denies dizziness or headache(s) Cardiovascular Cardiovascular: Denies abdominal pain, chest pain or dyspnea Respiratory/Chest Respiratory/Chest: Denies cough, dyspnea, shortness of breath at rest or shortness of breath with exertion Gastrointestinal Gastrointestinal: Denies abdominal pain, diarrhea or vomiting Genitourinary Genitourinary: Denies change in urinary stream, difficulty urinating or dysuria Musculoskeletal Musculoskeletal: Reports none Integumentary Integumentary: Denies rash Neurologic Neurologic: Denies dizziness, headache(s), memory loss or weakness Physical Exam Const alert and no apparent distress General Appearance: cooperative and comfortable Exam Limitations: no limitations HEENT normocephalic Eyes General Eye: normal appearance of both eyes Neck full ROM General: normal visual inspection Chest Chest: symmetrical chest wall rise Resp normal respiratory effort and normal air movement Effort and Inspection: symmetric chest movement Auscultation: clear to auscultation bilaterally Cardio regular rate and regular rhythm GI normal to inspection, nondistended, normoactive bowel sounds Back/Spine normal ROM Extremity full ROM and no calf tenderness General Extremity: normal exam except as noted Skin no rashes or lesions noted Neuro CN's II-XII intact bilaterally Psych mental status grossly normal Assessment & Plan (1) Precipitous delivery: (2) Lactating mother: (3) Second degree perineal laceration: (4) (vaginal after ): (5) Anemia due to blood loss: PLAN: Plan PPD 1 HGB down to 7.8- patient asymptomatic but will give dose of IV iron Pain control Anticipate discharge home tomorrow
[2023-12-13] MEDS: Iron Sucrose Complex 200 MG in 0.9% Normal Saline (100mL Bag) 100 ML 220 MG IV (10:08)
[2023-12-13] MEDS: Senna/Docusate Sodium 1 Tablet PO (10:18)
[2023-12-13] MEDS: Ferrous Sulfate 325 MG Tablet PO ×2 (14:14→18:25)
--- NOTE | 2023-12-13 14:23 | NURSING ---
ortho static bps taken- pt ambulate to the bathroom to void without any dizziness
[2023-12-13] MEDS: Acetaminophen 500 MG Tablet 1000 MG PO (15:59)
[2023-12-14 01:35] VITALS: BP 95/58; PULSE 69; RESP 17; TEMP 36.8; O2SAT 98
--- NOTE | 2023-12-14 06:26 | PCM.DC.SUM ---
Providers Date of Admission: 12/12/23 Reason For Visit: LABOR Diagnosis Discharge Diagnosis (1) Precipitous delivery: Status: Acute Code(s): O62.3 - Precipitate labor (2) Lactating mother: Status: Acute Code(s): Z39.1 - Encounter for care and examination of lactating mother (3) Second degree perineal laceration: Status: Acute Code(s): O70.1 - Second degree perineal laceration during delivery (4) (vaginal after ): Status: Acute Code(s): O34.219 - Maternal care for unspecified type scar from previous delivery (5) Anemia due to blood loss: Status: Acute Code(s): D50.0 - Iron deficiency anemia secondary to blood loss (chronic) Plan PPD 2 Pain control support D/C home with follow up in office Medications at Discharge Home Medications acetaminophen 500 mg tablet 1,000 mg (2 x 500 mg) PO Q6H PRN PRN Pain 1-10 Or Fever #0 tabs 12/14/23 ferrous sulfate 325 mg (65 mg iron) tablet (FeroSul) 325 mg PO 1200,1700 #0 tabs 12/14/23 ibuprofen 600 mg tablet 600 mg PO Q6H PRN PRN Pain Score 1-10 #0 tabs 12/14/23 Hospital Course Operations None Procedures None Summary of Care Provided Minutes Spent on Discharge: 15 Hospital Course: Patient had successful . Hospital course was uneventful. Physical Exam Const alert and no apparent distress General Appearance: cooperative and comfortable Exam Limitations: no limitations HEENT normocephalic Eyes General Eye: normal appearance of both eyes Neck full ROM General: normal visual inspection Chest Chest: symmetrical chest wall rise Resp normal respiratory effort and normal air movement Effort and Inspection: symmetric chest movement Auscultation: clear to auscultation bilaterally Cardio regular rate and regular rhythm GI normal to inspection, nondistended, normoactive bowel sounds Back/Spine normal ROM Extremity full ROM and no calf tenderness General Extremity: normal exam except as noted Skin no rashes or lesions noted Neuro CN's II-XII intact bilaterally Psych mental status grossly normal ABG / Lab / Microbiology Data 12/13/23 06:15 12/12/23 23:30 Laboratory: Laboratory Results - last 24 hr 12/13/23 01:28: WBC 16.4 H, RBC 2.91 L, Hgb 8.1 L, Hct 25.3 L, MCV 86.9, MCH 27.8, MCHC 32.0, RDW Std Deviation 42.8, RDW Coeff of Camilla 13.7, Plt Count 180, MPV 10.8, Immature Gran % (Auto) 0.900, Neut % (Auto) 88.7 H, Lymph % (Auto) 5.1 L, [facility] % (Auto) 5.2, Eos % (Auto) 0.0, Baso % (Auto) 0.1, Absolute Neuts (auto) 14.6 H, Absolute Lymphs (auto) 0.83, Nucleated RBC % 0, PT 13.9, INR 1.1, APTT 24.7, Fibrinogen 350 12/13/23 06:15: WBC 14.3 H, RBC 2.81 L, Hgb 7.8 L, Hct 24.5 L, MCV 87.2, MCH 27.8, MCHC 31.8 L, RDW Std Deviation 43.2, RDW Coeff of Camilla 13.7, Plt Count 179, MPV 10.8, Immature Gran % (Auto) 0.700, Neut % (Auto) 82.0 H, Lymph % (Auto) 9.6 L, [facility] % (Auto) 7.5, Eos % (Auto) 0.0, Baso % (Auto) 0.2, Absolute Neuts (auto) 11.7 H, Absolute Lymphs (auto) 1.38, Nucleated RBC % 0 D/C Instructions Discharge Diet: No restrictions May resume sexual activity in: 6-8 weeks Weight Bearing Status: Weight bearing as tolerated Call your doctor if you observe: Fever of 101 or Higher, Inability to urinate, Using more than 1 pad per hour, Shortness of breath, Chest pain, Calf discomfort and Uncontrolled pain Please Follow Up With: Breann Arriaza CNM When: 2 weeks virtual visit/ 6 weeks in office Meaningful Use Info Meaningful Use Meaningful Use Diagnoses (Choose all that apply): None applicable Ischemic Stroke Statin Dosing Therapy Reference: STATIN DOSE THERAPY REFERENCE: * Patients > 75 years receive moderate or high dose statin therapy. * Patients 75 years or YOUNGER should receive HIGH intensity statin dose unless contraindicated. You will be required to document reason for non-treatment if statin daily dose does not meet guidelines. HIGH DOSE STATIN THERAPY DAILY Atorvastatin > than or = to 40 mg Rosuvastatin > than or = to 20 mg Amlodipine + Atorvastatin > than or = to 2.5/40 mg Ezetimibe + Simvastatin 10/80 mg Simvastatin 80mg Discharge Plan Admission Admit Date/Time: 12/12/23 19:37 Primary Reason for Your Visit: Labor and Delivery Attending Provider: Eloina Carrizales Discharge Orders/Prescriptions Prescriptions: New acetaminophen 500 mg Tablet 1,000 mg PO Q6H PRN PRN (Reason: Pain 1-10 Or Fever) Qty: 0 0RF ferrous sulfate [FeroSul] 325 mg (65 mg iron) Tablet 325 mg PO 1200,1700 Qty: 0 0RF ibuprofen 600 mg Tablet 600 mg PO Q6H PRN PRN (Reason: Pain Score 1-10) Qty: 0 0RF Referrals / Follow Up: Breann Arriaza CNM [Med Staff - Adv Practice Prof] - Disposition Disposition (needs filled in before D/C Order can be placed): Home, Self Care
--- NOTE | 2023-12-14 10:02 | PN_ITS ---
Progress Note late entry: I was called by JUANITA Carrizales and notified that an DEPUTY SHERIFF GENERALIST/BAILIFF was called on patient for passing out in the bathroom. I called the charge nurse spoke to her about what was occurring the patient was back in the bed with stable blood pressure had 2 IVs and was getting IV fluids. There was no excessive vaginal bleeding, fundus was firm. Labs were already drawn. I asked if they felt comfortable with the plan and they were. I called back at approximately 12 minutes later patient was still doing well no further interventions were performed. I was made aware of low fibrinogen at a later time patient was not actively bleeding decision to repeat her labs at 1:30 AM where at that time her fibrinogen was normal. Patient remained stable throughout this time.
[2023-12-14 10:30] VITALS: BP 105/63; PULSE 89; RESP 18; TEMP 36.9; O2SAT 98
[2023-12-14] MEDS: Ferrous Sulfate 325 MG Tablet PO (12:54)
== END 2023-12-14 13:55 | disposition home or self-care (01) | DRG 548 ==
PROVIDERS: Obstetrics & Gynecology; Admitting Provider Advanced Practice Midwife; Referring Provider Advanced Practice Midwife; Visit Provider Advanced Practice Midwife
DX: Z39.0 Encounter for care and examination of mother immediately after delivery (principal); D50.0 Iron deficiency anemia secondary to blood loss (chronic); O62.3 Precipitate labor; O70.1 Second degree perineal laceration during delivery; O34.219 Maternal care for unspecified type scar from previous cesarean delivery; O99.02 Anemia complicating childbirth; Z3A.40 40 weeks gestation of pregnancy; Z87.51 Personal history of pre-term labor
CPT/HCPCS: 80053; 82962; 85025; 85384; 85610; 85730; 86780; 86850; 86900; 86901; J1756; J7030; J7120; A4216